=== PATIENT | male | born 1995 | race Caucasian/White ===

== ENCOUNTER → 2021-01-25 08:45 | Outpatient (CLI) | payer BC, SELFPAY ==
--- NOTE | ~2021-01-25 | XR_ITS ---
EXAMINATION: XR shoulder RT min 2V DATE: 01/25/2021 09:24 INDICATION: Right shoulder pain TECHNIQUE: AP internally and externally rotated, AP oblique externally rotated and axillary views of the right shoulder were obtained. COMPARISON: None FINDINGS: Normal alignment. No fracture. Glenohumeral joint is normal. Acromioclavicular joint is normal. Soft tissues are unremarkable. Visualized portion of the right lung is clear. IMPRESSION: Negative right shoulder radiographs. Reviewed, dictated and finalized at location A.
--- NOTE | ~2021-01-25 | XR_ITS ---
XR lumbar spine 2-3V 01/25/2021 09:24 Indication: Low back pain Procedure: 3 views lumbar spine Comparison: No prior studies for comparison. Findings: Vertebral body and disc heights are preserved. No fracture, subluxation or spondylolisthesi s. Pedicles intact. Sacral foramen are symmetric. Impression: 1: No significant abnormality of the lumbar spine. Reviewed, dictated and finalized at location B. Impression: 1: No significant abnormality of the lumbar spine.
== END ==
PROVIDERS: PCP Family Medicine; Visit Provider Nurse Practitioner Family
DX: M25.511 Pain in right shoulder (principal); M54.5 Low back pain
CPT/HCPCS: 72100; 73030

== ENCOUNTER 2023-08-23 13:00 | Outpatient (CLI) | payer OTHER, SELFPAY ==
--- NOTE | ~2023-08-23 | XR_ITS ---
XR chest 2V DATE: 08/23/2023 13:15 INDICATION: Dysphagia TECHNIQUE: 2 views, PA and lateral projections COMPARISON: 10/15/2010 PA and lateral chest FINDINGS: Normal heart size. No hilar or mediastinal enlargement. No pulmonary infiltrate or consolid ation, pleural effusion or pulmonary vascular congestion or pneumothorax. Included skeletal structure s appear normal. IMPRESSION: Negative Reviewed, dictated and finalized at location A. 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
== END 2023-08-23 13:01 | disposition home or self-care (01) ==
LOC: ANHIMG 13:03
PROVIDERS: PCP Family Medicine; Visit Provider Family Medicine
DX: R13.14 Dysphagia, pharyngoesophageal phase (principal)
CPT/HCPCS: 71046

== ENCOUNTER 2023-09-02 01:13 | Day surgery (SDC) | payer OTHER, SELFPAY ==
[2023-08-17 15:39] VITALS: BMI 23.8
--- NOTE | 2023-08-31 12:44 | SUR.PREOP ---
Patient called regarding upcoming procedure. Pt updated on arrival date and time. All questions answered.
--- NOTE | 2023-09-01 14:05 | PM.HPGS ---
History of Present Illness History of Present Illness Consent: Risks, benefits, and alternatives have been discussed and questions answered. Patient agrees to proceed with procedure. Chief complaint: Dysphagia, pharyngoesophageal Narrative: Beto Rowe is a 28 year old male Who has been having progressive difficulty swallowing solid food. His father apparently also his paternal grandfather had have esophageal dilatation and apparently had eosinophilic esophagitis as well. Review of Systems Review of Systems: All systems reviewed & are unremarkable except as noted in HPI and below PMFSH Past Medical History Medical History Acute pharyngitis, unspecified (06/29/17) BMI 21.0-21.9, adult BMI 23.0-23.9, adult Dysphagia Encounter for screening for respiratory tuberculosis (11/30/17) Exposure to chlamydia, mucopurulent cervitis/nongonococcal urethritis Lymphadenopathy Penile discharge Strep pharyngitis Testicular pain, left Surgical History Surgical History History of appendectomy Family History Family History Father A-fib Eosinophilic esophagitis Mother No problems noted. Sibling No problems noted. 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 Gender identity (if verbalized by the patient): Male Spiritual care concerns: No Meds Home Medications and Allergies Home Medications Medication Instructions Recorded Confirmed Type famotidine 40 mg tablet 40 mg PO DAILY #30 tabs 08/10/23 09/02/23 Rx cephalexin 500 mg capsule 500 mg PO BID 08/17/23 08/17/23 History doxycycline monohydrate 100 mg 100 mg PO DAILY 08/17/23 08/17/23 History capsule Allergies Allergy/AdvReac Type Severity Reaction Status Date / Time No Known Allergies Allergy Mild Verified 09/02/23 10:30 Exam Const: General: alert Orientation/consciousness: patient oriented x3 Resp: Auscultation: clear to auscultation bilaterally Cardio: Rhythm: regular rhythm GI: GI Palp: Yes Soft to palpation and No Tenderness to palpation present (GI) Neuro: General: patient oriented x3 Assessment and Plan Assessment and plan (1) Dysphagia: Qualifiers: Dysphagia type: pharyngoesophageal phase Qualified Code(s): R13.14 - Dysphagia, pharyngoesophageal phase Code(s): R13.10 - Dysphagia, unspecified Status: Acute Assessment and Plan: EGD with possible biopsy or dilatation or cautery.
[2023-09-02 10:32] VITALS: BP 112/65; PULSE 63; RESP 20; TEMP 36; O2SAT 100; BMI 23.8
[2023-09-02] MEDS: LACTATED RINGERS 1,000 ML 150 ML IV CONT (10:34)
--- NOTE | 2023-09-02 10:55 | WPDANESEPPF ---
Anes - Initial Pre Proc Eval Procedure: Operation Date: 09/02/23 11:30 Proposed Procedures p Esophagogastroduodenoscopy - Alfred Live MD Date/Time: 09/02/23 10:55 Surgeon: Alfred Live MD Pre Op Diagnosis: Dysphagia, pharyngoesophageal Patient Data Age: 28 Gender: M Height: 1.83 m Weight: 79.9 kg Last Vital Signs Temp 96.8 F L 09/02/23 10:32 Pulse 63 09/02/23 10:32 Resp 20 09/02/23 10:32 BP 112/65 09/02/23 10:32 Pulse Ox 100 09/02/23 10:32 O2 Del Method Room Air 09/02/23 10:32 Allergies Allergy/AdvReac Type Severity Reaction Status Date / Time No Known Allergies Allergy Mild Verified 09/02/23 10:30 Home Medications Medication Instructions Recorded Confirmed Type famotidine 40 mg tablet 40 mg PO DAILY #30 tabs 08/10/23 09/02/23 Rx cephalexin 500 mg capsule 500 mg PO BID 08/17/23 08/17/23 History doxycycline monohydrate 100 mg 100 mg PO DAILY 08/17/23 08/17/23 History capsule Patient hx anesthesia problems: none Family hx anesthesia problems: none Results Review: All pre-operative results and documents have been reviewed as part of the pre-operative evaluation. [facility], [facility] Past Medical History Medical History (Updated 08/10/23 @ 17:36 by Wellington Jimenez MD) Acute pharyngitis, unspecified (06/29/17) BMI 21.0-21.9, adult BMI 23.0-23.9, adult Dysphagia Encounter for screening for respiratory tuberculosis (11/30/17) Exposure to chlamydia, mucopurulent cervitis/nongonococcal urethritis Lymphadenopathy Penile discharge Strep pharyngitis Testicular pain, left Surgical History Surgical History History of appendectomy Family History Family History Father A-fib Eosinophilic esophagitis Mother No problems noted. Sibling No problems noted. 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 Informed Consent: The patient's anesthetic plan and its attendant risks and benefits were discussed with the patient/family/POA. Questions were solicited and answers provided to the satisfaction of the patient/family/POA.
[2023-09-02 11:48] VITALS: BP 105/54; PULSE 76; RESP 19; O2SAT 98
[2023-09-02 11:58] VITALS: BP 105/68; PULSE 72; RESP 18; O2SAT 99
[2023-09-02 12:08] VITALS: BP 103/69; PULSE 60; RESP 18; O2SAT 99
== END 2023-09-02 12:12 | disposition home or self-care (01) ==
PROVIDERS: PCP Family Medicine; Visit Provider Internal Medicine Gastroenterology
PROC: 0DJ08ZZ Inspection of Upper Intestinal Tract, Via Natural or Artificial Opening Endoscopic (ICD-10-PCS; CPT 43235; principal; 2023-09-02 11:30)
DX: K21.9 Gastro-esophageal reflux disease without esophagitis (principal); K22.2 Esophageal obstruction; R36.9 Urethral discharge, unspecified; Z98.890 Other specified postprocedural states; Z82.49 Family history of ischemic heart disease and other diseases of the circulatory system
CPT/HCPCS: 43239; 87081; 88305; J2405; J2704; J3010; J7120